=== PATIENT | male | born 1985 | race Caucasian/White ===

== ENCOUNTER 2017-12-31 11:21 | Emergency (ER) | payer OTHER ==
[~2017-12-31] VITALS: Ht 185.4 cm; Wt 70.5 kg
[2017-12-31] MEDS ORDERED: IBUPROFEN 600 MG TABLET PO ONE (13:00)
[2017-12-31] MEDS ORDERED: CefTRIAXone SODIUM 1 GM/VIAL IM ONE (13:15)
[2017-12-31 13:30] VITALS: BP 121/68
[2017-12-31] MEDS ORDERED: LIDOCAINE HCL/PF 1% 2 ML VIAL IM ONE (13:45)
== END 2017-12-31 13:53 | disposition home or self-care (01) ==
LOC: EMS 11:23
DX: L08.9 Local infection of the skin and subcutaneous tissue, unspecified (principal); F15.10 Other stimulant abuse, uncomplicated; F17.200 Nicotine dependence, unspecified, uncomplicated; Z88.0 Allergy status to penicillin
CPT/HCPCS: 96372; 99283; J0696; J3490

== ENCOUNTER 2018-01-02 13:22 | Emergency (ER) | payer OTHER ==
[~2018-01-02] VITALS: Ht 185.4 cm; Wt 72.7 kg
[2018-01-02] MEDS ORDERED: CefTRIAXone SODIUM 1 GM/VIAL IM ONE (15:45)
[2018-01-02] MEDS ORDERED: LIDOCAINE HCL/PF 1% 2 ML VIAL IM ONE (15:45)
[2018-01-02] MEDS ORDERED: SULFAMETHOX/TRIMETH DS 800-160 MG/TABLET PO ONE (15:45)
[2018-01-02 16:06] VITALS: BP 110/68
== END 2018-01-02 16:28 | disposition home or self-care (01) ==
LOC: EMS 13:24
DX: L03.011 Cellulitis of right finger (principal); F41.9 Anxiety disorder, unspecified; F32.9 Major depressive disorder, single episode, unspecified; F17.210 Nicotine dependence, cigarettes, uncomplicated; Z88.0 Allergy status to penicillin
CPT/HCPCS: 96372; 99283; J0696; J3490